=== PATIENT | female | born 1970 | race Caucasian/White ===

== ENCOUNTER → 2017-04-23 | Outpatient (CLI) | payer BC ==
--- NOTE | 2017-04-24 09:20 | MM ---
Reason for exam: screening (asymptomatic). Last mammogram was performed 1 year and 11 months ago. History: Patient is nulliparous. Family history of breast cancer in maternal grandmother at age 75. Took hormonal contraceptives for 1 month beginning at age 39. Physical Findings: A clinical breast exam by your physician is recommended on an annual basis and results should be correlated with mammographic findings. MG Screening Mammo w CAD Bilateral CC and MLO view(s) were taken. Prior study comparison: May 22, 2015, bilateral MG screening mammo w CAD. February 23, 2014, bilateral MG screening mammo w CAD. The breast tissue is heterogeneously dense. This may lower the sensitivity of mammography. No suspicious abnormality. No significant changes when compared with prior studies. ASSESSMENT: Negative, BI-RAD 1 RECOMMENDATION: Routine screening mammogram of both breasts in 1 year.
== END | disposition home or self-care (01) ==
LOC: RADMAMWWP 10:51
PROVIDERS: ATTEND Family Medicine
DX: Z12.31 Encounter for screening mammogram for malignant neoplasm of breast (principal)

== ENCOUNTER 2020-05-04 10:18 | Emergency (ER) | payer BC ==
[2020-05-04 10:33] VITALS: BP 120/83; TEMP 97.8
[2020-05-04] MEDS ORDERED: ALPRAZolam 0.25 MG TAB PO STA (10:46)
--- NOTE | 2020-05-04 11:03 | ED ---
General Adult HPI - General Chief complaint: Psychiatric Symptoms Stated complaint: anxiety/weight loss Time Seen by Provider: 05/04/20 10:34 Source: patient, RN notes reviewed, old records reviewed Mode of arrival: ambulatory Limitations: no limitations - History of Present Illness Initial comments: 49-year-old female patient presents to ED for evaluation of anxiety and depression. Patient was has been ongoing for a couple of months. Patient reports that she has had fleeting thoughts of suicidal ideations. Denies any plan reaction to hurt herself. Patient reports that she has also lost about 20 pounds of this timeframe. Patien states she has not been eating much. Denies any area of pain. Denies any other complaints. Systemic: Pt denies fatigue, fever/chills, rash. Pt denies weakness, night sweats, weight loss. Neuro: Pt denies headache, visual disturbances, syncope or pre-syncope. HEENT: Pt denies ocular discharge or irritation, otalgia, rhinorrhea, pharyngitis or notable lymphadenopathy. Cardiopulmonary: Pt denies chest pain, SOB, heart palpitations, dyspnea on exertion. : Pt denies dysuria, burning w/ urination, frequency/urgency. Denies new onset urinary or bowel incontinence. MSK: Pt denies myalgia, loss of strength or function in extremities. Neuro: Pt denies new onset weakness, paresthesias. - Related Data Home Medications Medication Instructions Recorded Confirmed ALPRAZolam [Xanax] 0.25 mg PO DAILY PRN 05/04/20 05/04/20 Aspirin/Sod Bicarb/Citric Acid 2 tab PO Q12H PRN 05/04/20 05/04/20 [Negar-Renate Original Tab Eff] Venlafaxine HCl [Effexor] 75 mg PO DAILY 05/04/20 05/04/20 traZODone HCL [Desyrel] 100 mg PO HS 05/04/20 05/04/20 Allergies Allergy/AdvReac Type Severity Reaction Status Date / Time No Known Allergies Allergy Verified 05/04/20 13:11 Review of Systems ROS Statement: Those systems with pertinent positive or pertinent negative responses have been documented in the HPI. ROS Other: All systems not noted in ROS Statement are negative. Past Medical History Past Medical History: GERD/Reflux Additional Past Medical History / Comment(s): MENORRHAGIA, UTERINE FIBROIDS, ANEMIA. History of Any Multi-Drug Resistant Organisms: None Reported Past Surgical History: Hysterectomy Additional Past Surgical History / Comment(s): RIGHT ANKLE FX WITH PINS, D & C. Past Anesthesia/Blood Transfusion Reactions: Motion Sickness, Postoperative Nausea & Vomiting (PONV) Past Psychological History: Anxiety, Depression Smoking Status: Never smoker Past Alcohol Use History: Occasional Past Drug Use History: None Reported - Past Family History Mother Family Medical History: Cancer Additional Family Medical History / Comment(s): UTERINE CANCER General Exam - General Exam Comments Initial Comments: Constitutional: NAD, AOX3, Pt has pleasant affect. HEENT: NC/AT, trachea midline, neck supple, no lymphadenopathy. External ears appear normal, without discharge. Mucous membranes moist. Eyes PERRLA, EOM intact. There is no scleral icterus. No pallor noted. Cardiopulmonary: RRR, no murmurs, rubs or gallops, no JVD noted. Lungs CTAB in anterior and posterior alcantar. No peripheral edema. Abdominal exam: Abdomen soft and non-distended. Abdomen non-tender to palpation in all 4 quadrants. Bowel sounds active in LLQ. No hepatosplenomegaly. No ecchymosis Neuro: CN II-XII grossly intact. No nuchal rigidity. MSK: Full active ROM in upper and lower extremities, 5/5 stregnth. Limitations: no limitations Course Vital Signs 05/04/20 05/04/20 10:27 18:39 Temperature 97.8 F Pulse Rate 71 61 Respiratory 18 16 Rate Blood Pressure 120/83 O2 Sat by Pulse 97 99 Oximetry Medical Decision Making - Medical Decision Making 49-year-old female patient presents to ED for evaluation of suicidal ideations, psychiatric complaint. Denies any actions herself. Patient also reports that she has not been eating very much. Lymph investigations are unremarkable. Physical exam negative for acute pathology. Patient evaluated by psychiatric service recommended for discharge. Patient denying any acute suicidal ideations. Patient spoke with her PCP in the ED and will have close outpatient follow up and medication adjustment. PAtient denies any dysuria urine will be cultured. Case discussed with Dr. Larkin. - Lab Data Result diagrams: 05/04/20 11:18 05/04/20 11:18 Lab Results 05/04/20 05/04/20 05/04/20 Range/Units 11:18 11:18 11:18 WBC 5.5 (3.8-10.6) k/uL RBC 4.43 (3.80-5.40) m/uL Hgb 14.1 (11.4-16.0) gm/dL Hct 41.6 (34.0-46.0) % MCV 94.0 (80.0-100.0) fL MCH 31.9 (25.0-35.0) pg MCHC 33.9 (31.0-37.0) g/dL RDW 12.2 (11.5-15.5) % Plt Count 280 (150-450) k/uL Neutrophils % 73 % Lymphocytes % 20 % Monocytes % 5 % Eosinophils % 1 % Basophils % 1 % Neutrophils # 4.0 (1.3-7.7) k/uL Lymphocytes # 1.1 (1.0-4.8) k/uL Monocytes # 0.3 (0-1.0) k/uL Eosinophils # 0.0 (0-0.7) k/uL Basophils # 0.0 (0-0.2) k/uL Sodium 139 (137-145) mmol/L Potassium 3.5 (3.5-5.1) mmol/L Chloride 103 (98-107) mmol/L Carbon Dioxide 29 (22-30) mmol/L Anion Gap 7 mmol/L BUN 11 (7-17) mg/dL Creatinine 0.72 (0.52-1.04) mg/dL Est GFR (CKD-EPI)AfAm >90 (>60 ml/min/1.73 sqM) Est GFR (CKD-EPI)NonAf >90 (>60 ml/min/1.73 sqM) Glucose 95 (74-99) mg/dL Calcium 9.2 (8.4-10.2) mg/dL Total Bilirubin 0.4 (0.2-1.3) mg/dL AST 24 (14-36) U/L ALT 19 (4-34) U/L Alkaline Phosphatase 72 (38-126) U/L Total Protein 7.1 (6.3-8.2) g/dL Albumin 4.3 (3.5-5.0) g/dL Urine Color Yellow Urine Appearance Turbid H (Clear) Urine pH 8.0 (5.0-8.0) Ur Specific Woodward 1.018 (1.001-1.035) Urine Protein Trace H (Negative) Urine Glucose (UA) Negative (Negative) Urine Ketones 1+ H (Negative) Urine Blood Negative (Negative) Urine Nitrite Negative (Negative) Urine Bilirubin Negative (Negative) Urine Urobilinogen <2.0 (<2.0) mg/dL Ur Leukocyte Esterase Moderate H (Negative) Ur Squamous Epith Cells 15 H (0-4) /hpf Amorphous Sediment Many H (None) /hpf Urine Mucus Few H (None) /hpf Urine Opiates Screen Not Detected (NotDetected) Ur Oxycodone Screen Not Detected (NotDetected) Urine Methadone Screen Not Detected (NotDetected) Ur Propoxyphene Screen Not Detected (NotDetected) Ur Barbiturates Screen Not Detected (NotDetected) U Tricyclic Antidepress Not Detected (NotDetected) Ur Phencyclidine Scrn Not Detected (NotDetected) Ur Amphetamines Screen Not Detected (NotDetected) U Methamphetamines Scrn Not Detected (NotDetected) U Benzodiazepines Scrn Detected H (NotDetected) Urine Cocaine Screen Not Detected (NotDetected) U Marijuana (THC) Screen Not Detected (NotDetected) Disposition Clinical Impression: Depression Disposition: HOME SELF-CARE Condition: Stable Instructions (If sedation given, give patient instructions): Depression (ED) Additional Instructions: Follow up with PCP tomorrow. Return to ED with any worsening complaints. Is patient prescribed a controlled substance at d/c from ED?: No Referrals: Yesi Bianchi III, MD [Primary Care Provider] - 1-2 days
[2020-05-04 11:51] LABS: Amorphous Sediment,Urine Many /hpf; Amphetamine Screen,Urine Not Detected (NotDetected); Appearance,Urine Turbid (Clear); Barbiturate Screen,Urine Not Detected (NotDetected); Benzodiazepines Screen,Urine Detected (NotDetected); Bilirubin,Urine Negative (Negative); Blood,Urine Negative (Negative); Cocaine Screen,Urine Not Detected (NotDetected); Color,Urine Yellow; Glucose,Urine (UA) Negative (Negative); Ketones,Urine 1+ (Negative); Leukocyte Esterase,Urine Moderate (Negative); Methadone Screen, Urine Not Detected (NotDetected); Nitrite,Urine Negative (Negative); Opiate Screen,Urine Not Detected (NotDetected); Oxycodone Screen, Urine Not Detected (NotDetected); Phencyclidine Screen,Urine Not Detected (NotDetected); Protein,Urine Trace (Negative); Specific Gravity,Urine 1.018 (1.001-1.035); Tricyclic Antidepressant,Urine Not Detected (NotDetected); Urn Cannabinoid Scrn Not Detected (NotDetected); Urobilinogen,Urine <2.0 mg/dL (<2.0)
[2020-05-04 12:05] LABS: ALT 19 U/L (4-34); AST 24 U/L (14-36); African American GFR (CKD) >90 (>60 ml/min/1.73 sqM); Albumin 4.3 g/dL (3.5-5.0); Alkaline Phosphatase 72 U/L (38-126); Anion Gap 7 mmol/L; Blood Urea Nitrogen 11 mg/dL (7-17); Calcium 9.2 mg/dL (8.4-10.2); Carbon Dioxide 29 mmol/L (22-30); Chloride 103 mmol/L (98-107); Glucose 95 mg/dL (74-99); Non-African American GFR(CKD) >90 (>60 ml/min/1.73 sqM); Potassium 3.5 mmol/L (3.5-5.1); Sodium 139 mmol/L (137-145); Total Bilirubin 0.4 mg/dL (0.2-1.3); Total Protein 7.1 g/dL (6.3-8.2)
[2020-05-04 12:11] LABS: Basophils % (A) 1 %; Eosinophils % (A) 1 %; HCT 41.6 % (34.0-46.0); HGB 14.1 gm/dL (11.4-16.0); Lymphocytes # (A) 1.1 k/uL (1.0-4.8); Lymphocytes % (A) 20 %; MCH 31.9 pg (25.0-35.0); MCHC 33.9 g/dL (31.0-37.0); Mean Platelet Volume 6.7; Monocytes # (A) 0.3 k/uL (0-1.0); Monocytes % (A) 5 %; Neutrophils % (A) 73 %; Platelet Count 280 k/uL (150-450); RBC 4.43 m/uL (3.80-5.40); RDW 12.2 % (11.5-15.5); WBC 5.5 k/uL (3.8-10.6)
[2020-05-04] MEDS ORDERED: LORazepam 1 MG TAB PO STA (14:53)
[2020-05-04 18:41] VITALS: PULSE 61; RESP 16
[2020-05-04 19:08] LABS: Bacteria,Urine Occasional /hpf; Budding Yeast,Urine Many /hpf; Mucus,Urine Moderate /hpf; RBC,Urine 2 /hpf (0-5); Squamous Epithelial Cell,Urine 20 /hpf (0-4); WBC,Urine 23 /hpf (0-5)
== END 2020-05-04 18:40 | disposition home or self-care (01) ==
LOC: EC 10:18
DX: F41.9 Anxiety disorder, unspecified (principal); F32.9 Major depressive disorder, single episode, unspecified; Z79.899 Other long term (current) drug therapy
CPT/HCPCS: 36415; 80053; 80306; 81001; 82075; 85025; 87086; 99284

== ENCOUNTER → 2020-06-07 | Outpatient (CLI) | payer BC | END | disposition home or self-care (01) | LOC: LABWHC1 10:29 | PROVIDERS: ATTEND Emergency Medicine | DX: Z20.828 Contact with and (suspected) exposure to other viral communicable diseases (principal) | CPT/HCPCS: U0003; C9803 ==

== ENCOUNTER 2020-07-03 13:13 | Inpatient (IN) | payer BC ==
--- NOTE | 2020-07-03 14:49 | ED ---
Psych HPI - General Chief Complaint: Psychiatric Symptoms Stated Complaint: EPS eval Time Seen by Provider: 07/03/20 14:01 Source: patient Mode of arrival: ambulatory - History of Present Illness Initial Comments: Patient is a 49-year-old female presenting to the emergency department for psychiatric evaluation. Patient does have history of anxiety and depression. Patient states yesterday she was feeling suicidal and started looking around her house for her husbands guns. Patient continues to feel depressed and suicidal today. Patient states her did move his guns and she does not know whether at this time. Patient denies any homicidal thoughts. She states that her psychologist recently changed her anxiety and depression medications and she does not feel like they are helping. Patient denies any alcohol use, no drug use, she is a nonsmoker. Patient has no further complaints at this time. - Related Data Home Medications Medication Instructions Recorded Confirmed traZODone HCL [Desyrel] 100 mg PO HS 05/04/20 07/03/20 FLUoxetine HCL [PROzac] 20 mg PO DAILY 07/03/20 07/03/20 busPIRone HCl [Buspar] 10 mg PO BID 07/03/20 07/03/20 Allergies Allergy/AdvReac Type Severity Reaction Status Date / Time No Known Allergies Allergy Verified 07/03/20 14:50 Review of Systems ROS Statement: Those systems with pertinent positive or pertinent negative responses have been documented in the HPI. ROS Other: All systems not noted in ROS Statement are negative. Past Medical History Past Medical History: GERD/Reflux Additional Past Medical History / Comment(s): MENORRHAGIA, UTERINE FIBROIDS, ANEMIA. History of Any Multi-Drug Resistant Organisms: None Reported Past Surgical History: Hysterectomy Additional Past Surgical History / Comment(s): RIGHT ANKLE FX WITH PINS, D & C. Past Anesthesia/Blood Transfusion Reactions: Motion Sickness, Postoperative N ausea & Vomiting (PONV) Past Psychological History: Anxiety, Depression Smoking Status: Never smoker Past Alcohol Use History: Occasional Past Drug Use History: None Reported - Past Family History Mother Family Medical History: Cancer Additional Family Medical History / Comment(s): UTERINE CANCER General Exam - General Exam Comments Initial Comments: GENERAL: Patient is well-developed and well-nourished. Patient is nontoxic and in no acute distress. HEAD: Atraumatic, normocephalic. EYES: Pupils equal round and reactive to light, extraocular movements intact, sclera anicteric, conjunctiva are normal. Eyelids were unremarkable. ENT: TMs normal, nares patent, oropharynx clear without exudates. Moist mucous membranes. NECK: Normal range of motion, supple without lymphadenopathy or JVD. LUNGS: Unlabored respirations. Breath sounds clear to auscultation bilaterally and equal. No wheezes rales or rhonchi. HEART: Regular rate and rhythm without murmurs, rubs or gallops. ABDOMEN: Soft, nontender, normoactive bowel sounds. No guarding, no rebound. No masses appreciated. : Deferred MUSCULOSKELETAL: Normal extremities with adequate strength and normal range of motion, no pitting or edema. No clubbing or cyanosis. NEUROLOGICAL: Patient is alert and oriented x 3. Motor and sensory are also intact. Cranial nerves II through XII grossly intact. Symmetrical smile. Normal speech, normal gait. PSYCH: Normal mood, normal affect. SKIN: Warm, Dry, normal turgor, no rashes or lesions noted. Limitations: no limitations Course Vital Signs 07/03/20 13:15 Temperature 98.5 F Pulse Rate 88 Respiratory 18 Rate Blood Pressure 123/79 O2 Sat by Pulse 99 Oximetry Medical Decision Making - Medical Decision Making Patient is a 49-year-old female here for psychiatric evaluation. Patient states she's been feeling depressed over this weekend and yesterday was looking for her husbands guns to commit suicide. She denies any homicidal thoughts. Denies any drug use. Patient was evaluated by EPS and patient will be admitted to the psych unit. Urine drug screen is negative, covert test is negative. Patient did sign herself in. - Lab Data Lab Results 07/03/20 07/03/20 Range/Units 15:14 15:14 Urine Opiates Screen Not Detected (NotDetected) Ur Oxycodone Screen Not Detected (NotDetected) Urine Methadone Screen Not Detected (NotDetected) Ur Propoxyphene Screen Not Detected (NotDetected) Ur Barbiturates Screen Not Detected (NotDetected) U Tricyclic Antidepress Not Detected (NotDetected) Ur Phencyclidine Scrn Not Detected (NotDetected) Ur Amphetamines Screen Not Detected (NotDetected) U Methamphetamines Scrn Not Detected (NotDetected) U Benzodiazepines Scrn Not Detected (NotDetected) Urine Cocaine Screen Not Detected (NotDetected) U Marijuana (THC) Screen Not Detected (NotDetected) Coronavirus (PCR) Not Detected (Not Detectd) Disposition Clinical Impression: Depression with suicidal ideation Disposition: TRANSFER TO PSYCH HOSP/UNIT Condition: Stable Decision Date: 07/03/20 Decision Time: 16:32
[2020-07-03 15:39] LABS: Amphetamine Screen,Urine Not Detected (NotDetected); Barbiturate Screen,Urine Not Detected (NotDetected); Benzodiazepines Screen,Urine Not Detected (NotDetected); Cocaine Screen,Urine Not Detected (NotDetected); Methadone Screen, Urine Not Detected (NotDetected); Opiate Screen,Urine Not Detected (NotDetected); Oxycodone Screen, Urine Not Detected (NotDetected); Phencyclidine Screen,Urine Not Detected (NotDetected); Tricyclic Antidepressant,Urine Not Detected (NotDetected); Urn Cannabinoid Scrn Not Detected (NotDetected)
[2020-07-03] MEDS ORDERED: LORazepam 1 MG TAB PO STA (15:56)
[2020-07-03] MEDS ORDERED: ACETAMINOPHEN TAB 325 MG TAB PO PRN (16:54)
[2020-07-03] MEDS ORDERED: MAGNESIUM HYDROXIDE 2,400 MG/10 ML CUP PO PRN (16:54)
[2020-07-03] MEDS ORDERED: MAG HYDROX/AL HYDROX/SIMETH 30 ML CUP PO PRN (16:54)
[2020-07-03] MEDS ORDERED: LORazepam 1 MG TAB PO PRN (16:54)
[2020-07-03] MEDS ORDERED: LORazepam 2 MG/ML INJ IM PRN (16:56)
[2020-07-03] MEDS: busPIRone HCl 10 MG TAB PO SCH (20:56)
[2020-07-03] MEDS ORDERED: traZODone HCL 100 MG TAB PO SCH (21:00)
[2020-07-04 06:30] VITALS: RESP 16
[2020-07-04 07:24] LABS: Basophils # (A) 0.1 k/uL (0-0.2); Basophils % (A) 1 %; Eosinophils # (A) 0.1 k/uL (0-0.7); Eosinophils % (A) 1 %; HCT 40.5 % (34.0-46.0); HGB 14.1 gm/dL (11.4-16.0); Lymphocytes # (A) 1.4 k/uL (1.0-4.8); Lymphocytes % (A) 36 %; MCH 31.9 pg (25.0-35.0); MCHC 34.8 g/dL (31.0-37.0); MCV 91.9 fL (80.0-100.0); Mean Platelet Volume 6.9; Monocytes # (A) 0.3 k/uL (0-1.0); Monocytes % (A) 8 %; Neutrophils # (A) 2.1 k/uL (1.3-7.7); Neutrophils % (A) 52 %; Platelet Count 254 k/uL (150-450); RBC 4.41 m/uL (3.80-5.40); RDW 11.8 % (11.5-15.5)
[2020-07-04 07:32] LABS: ALT 12 U/L (4-34); AST 19 U/L (14-36); African American GFR (CKD) >90 (>60 ml/min/1.73 sqM); Albumin 3.8 g/dL (3.5-5.0); Alkaline Phosphatase 41 U/L (38-126); Anion Gap 6 mmol/L; Blood Urea Nitrogen 12 mg/dL (7-17); Calcium 9.1 mg/dL (8.4-10.2); Carbon Dioxide 28 mmol/L (22-30); Chloride 105 mmol/L (98-107); Cholesterol 195 mg/dL (<200); Glucose 96 mg/dL (74-99); HDL Cholesterol 55 mg/dL (40-60); LDL Cholesterol,Calculated 126 mg/dL (0-99); Non-African American GFR(CKD) 85 (>60 ml/min/1.73 sqM); Potassium 4.4 mmol/L (3.5-5.1); Sodium 139 mmol/L (137-145); Total Bilirubin 0.5 mg/dL (0.2-1.3); Total Protein 6.5 g/dL (6.3-8.2); Triglycerides 72 mg/dL (<150)
[2020-07-04] MEDS: busPIRone HCl 10 MG TAB PO SCH ×3 (08:25→21:46)
[2020-07-04] MEDS ORDERED: FLUoxetine HCL 20 MG CAP PO SCH (09:00)
--- NOTE | 2020-07-04 11:20 | P.HP ---
Psychiatric H&P - . H&P Date: 07/04/20 History & Physical: Allergies Allergy/AdvReac Type Severity Reaction Status Date / Time No Known Allergies Allergy Verified 07/03/20 17:48 Vital Signs Temp 97.5 F L 07/04/20 06:30 Pulse 79 07/04/20 10:40 Resp 16 07/04/20 06:30 BP 115/69 07/04/20 10:40 Pulse Ox 98 07/04/20 06:30 Intake & Output 07/03/20 07/04/20 07/04/20 18:59 06:59 18:59 Weight 59.534 kg Laboratory Last Values WBC 4.0 k/uL (3.8-10.6) 07/04/20 06:35 RBC 4.41 m/uL (3.80-5.40) 07/04/20 06:35 Hgb 14.1 gm/dL (11.4-16.0) 07/04/20 06:35 Hct 40.5 % (34.0-46.0) 07/04/20 06:35 MCV 91.9 fL (80.0-100.0) 07/04/20 06:35 MCH 31.9 pg (25.0-35.0) 07/04/20 06:35 MCHC 34.8 g/dL (31.0-37.0) 07/04/20 06:35 RDW 11.8 % (11.5-15.5) 07/04/20 06:35 Plt Count 254 k/uL (150-450) 07/04/20 06:35 MPV 6.9 07/04/20 06:35 Neutrophils % 52 % 07/04/20 06:35 Lymphocytes % 36 % 07/04/20 06:35 Monocytes % 8 % 07/04/20 06:35 Eosinophils % 1 % 07/04/20 06:35 Basophils % 1 % 07/04/20 06:35 Neutrophils # 2.1 k/uL (1.3-7.7) 07/04/20 06:35 Lymphocytes # 1.4 k/uL (1.0-4.8) 07/04/20 06:35 Monocytes # 0.3 k/uL (0-1.0) 07/04/20 06:35 Eosinophils # 0.1 k/uL (0-0.7) 07/04/20 06:35 Basophils # 0.1 k/uL (0-0.2) 07/04/20 06:35 Sodium 139 mmol/L (137-145) 07/04/20 06:35 Potassium 4.4 mmol/L (3.5-5.1) 07/04/20 06:35 Chloride 105 mmol/L (98-107) 07/04/20 06:35 Carbon Dioxide 28 mmol/L (22-30) 07/04/20 06:35 Anion Gap 6 mmol/L 07/04/20 06:35 BUN 12 mg/dL (7-17) 07/04/20 06:35 Creatinine 0.81 mg/dL (0.52-1.04) 07/04/20 06:35 Est GFR (CKD-EPI)AfAm >90 (>60 ml/min/1.73 sqM) 07/04/20 06:35 Est GFR (CKD-EPI)NonAf 85 (>60 ml/min/1.73 sqM) 07/04/20 06:35 Glucose 96 mg/dL (74-99) 07/04/20 06:35 Calcium 9.1 mg/dL (8.4-10.2) 07/04/20 06:35 Total Bilirubin 0.5 mg/dL (0.2-1.3) 07/04/20 06:35 AST 19 U/L (14-36) 07/04/20 06:35 ALT 12 U/L (4-34) 07/04/20 06:35 Alkaline Phosphatase 41 U/L (38-126) 07/04/20 06:35 Total Protein 6.5 g/dL (6.3-8.2) 07/04/20 06:35 Albumin 3.8 g/dL (3.5-5.0) 07/04/20 06:35 Triglycerides 72 mg/dL (<150) 07/04/20 06:35 Cholesterol 195 mg/dL (<200) 07/04/20 06:35 LDL Cholesterol, Calc 126 mg/dL (0-99) H 07/04/20 06:35 HDL Cholesterol 55 mg/dL (40-60) 07/04/20 06:35 TSH 3.250 mIU/L (0.465-4.680) 07/04/20 06:35 Urine Opiates Screen Not Detected (NotDetected) 07/03/20 15:14 Ur Oxycodone Screen Not Detected (NotDetected) 07/03/20 15:14 Urine Methadone Screen Not Detected (NotDetected) 07/03/20 15:14 Ur Propoxyphene Screen Not Detected (NotDetected) 07/03/20 15:14 Ur Barbiturates Screen Not Detected (NotDetected) 07/03/20 15:14 U Tricyclic Antidepress Not Detected (NotDetected) 07/03/20 15:14 Ur Phencyclidine Scrn Not Detected (NotDetected) 07/03/20 15:14 Ur Amphetamines Screen Not Detected (NotDetected) 07/03/20 15:14 U Methamphetamines Scrn Not Detected (NotDetected) 07/03/20 15:14 U Benzodiazepines Scrn Not Detected (NotDetected) 07/03/20 15:14 Urine Cocaine Screen Not Detected (NotDetected) 07/03/20 15:14 U Marijuana (THC) Screen Not Detected (NotDetected) 07/03/20 15:14 Coronavirus (PCR) Not Detected (Not Detectd) 07/03/20 15:14 07/04/20 11:12 IDENTIFYING DATA: Patient is a 49-year-old female who currently lives with her in the house is no kids and works for a company doing payroll. HPI: Patient presented to the hospital yesterday for psychiatric evaluation regarding patient's depression and suicidal thoughts. Patient had claimed in the ER that she had been looking for her 's guns in the house. She also admitted that she had a recent medication change for her psychiatric meds and was not feeling that it was helping her. Patient's UDS was negative. Patient signed voluntary and was admitted to the mental health unit. Patient was seen today and agreeable to speak to marketing underwriter. She had a soft tone of voice and appeared to have a constricted affect and appeared to be depressed. She states that she has been dealing with depression for several years now and was previously on Pristiq 40 mg. She stains that her doctor believed that it was not helping her and started her on Prozac 20 mg and was about to do a cross titration and states that patient last dose was on Friday of Pristiq and claims that after that day she was feeling more suicidal and depressed. 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 She states that her has progressive MS and she has to take care of him and also that her mother has dementia and is in a skilled nursing. She claims that on Friday she was feeling more suicidal and looking for the guns to end her life however on Friday she went into work and told her coworkers who told her to come into the ER for evaluation. She states that she did not sleep well last night her appetite has been low and also that she is been dealing with guilt and anxiety. She denied any history of any manic episodes in the past. Patient denies any homicidal ideations intent or plan. She admits to having ongoing thoughts of suicide however no intent or plan. At this time patient denies any auditory or visual hallucinations. Patient denies any flight of ideas racing thoughts and increased in goal directed behavior. Patient admits to using no recreational drugs cigarettes or alcohol. PAST PSYCHIATRIC HISTORY: Patient states that she has a history of depression. She claims that she was previously on Pristiq, Prozac, BuSpar and trazodone. Patient denies any previous psychiatric hospitalizations. She states that she was following up at [facility] and also with her primary care physician. Patient denies any history of suicide attempts in the past. PMH:denies ALLERGIES: as per EMR CHEMICAL DEPENDENCY HISTORY: as per HPI FAMILY PSYCHIATRIC/SUBSTANCE USE HISTORY: She states that her mother suffered from bipolar disorder now has dementia. SOCIAL HISTORY: Patient was born and raised in [place] and claims that currently she lives with her in a house has no kids. She states that she completed high school and currently works at a job doing payroll. She denies any legal history or penitentiary. MENTAL STATUS EXAM: General Appearance: Patient appears to be thin, older than stated age is alert, constricted affect and appears to be depressed however is attempting to cooperate. Patient appears to have poor hygiene and grooming. Behavior: Patient is seated without any agitated behavior. Constricted Speech: Patient's speech is fluent and nonpressured. Mood/Affect: Patient reports their mood is depressed and anxious, affect is congruent and constricted. Suicidality/Homicidality: Patient denies having any homicidal ideation intent or plan. She admits to suicidal ideations however nontender plan. Perceptions: Patient denies any visual hallucinations and denies any auditory hallucinations Though content/process: There is no evidence of any delusional thought content and thought process is linear and goal-directed. Focused on her symptoms and her medications. Depressive content. Memory and concentration: AOX3, grossly intact for the purposes of this session. Can spell "WORLD" backwards Judgment and insight: Fair STRENGTHS/WEAKNESSES: strength is that patient is resilient. Weakness is that patient has a chronic history of depression and several environmental stressors. INTELLECT: average IMPRESSIONS: Major depressive disorder, recurrent, severe without psychotic features Anxiety disorder unspecified PLAN: -Patient is admitted under voluntary status to MHU for stabilization of psychiatric symptoms and safety. Patient has signed adult voluntary form and medication consent and is placed in patient's chart. -Medications : Will start patient on Cymbalta 30 mg daily for mood/anxiety. Will also increase patient's trazodone to 150 mg daily at bedtime for insomnia/mood. Will increase BuSpar to 10 mg 3 times a day for anxiety. -Ativan PRN for agitation/aggression -Patient was informed of the risks, benefits and side effects of the medication and patient verbally consented to taking the medications. Patient signed med con sent form and was placed in chart. -Internal Medicine consult to perform medical evaluation and physical. -NRT -not needed as patient does not smoke -SW on board for discharge planning. Encourage patient to participate in groups to work on coping skills.
[2020-07-04] MEDS: DULoxetine HCL 30 MG CAPSULE.DR PO SCH (12:08)
[2020-07-04 17:37] LABS: Hemoglobin A1C 5.2 % (4.0-6.0)
[2020-07-04] MEDS: traZODone HCL 50 MG TAB PO SCH (21:47)
--- NOTE | 2020-07-04 22:46 | P.CONS ---
History of Present Illness - History of Present Illness This is a pleasant 49 years old female with past medical history of GERD, ut erine fibroids and anemia. She presents with signs and symptoms of depression without psychosis to the mental health unit. Medical consult has been requested for routine medical management. Patient is a pleasant with no physical complaints, she denies chest pain or dyspnea, no abdominal pain, no change in urine or bowel habits. No fever She denies leg pain or swelling. She denies smoking, alcohol or illicit drugs Labs including CBC, BMP, liver enzymes, TSH are unremarkable and all within nor mal limits. Urine drug screen is negative. Coronal varus not detected Review of Systems CONSTITUTIONAL: No fever, no malaise, no fatigue. HEENT: No recent visual problems or hearing problems. Denied any sore throat. CARDIOVASCULAR: No orthopnea, PND, no palpitations, no syncope. PULMONARY: No shortness of breath, no cough, no hemoptysis. GASTROINTESTINAL: No diarrhea, no nausea, no vomiting, no abdominal pain. Normoactive bowel sounds. NEUROLOGICAL: No headaches, no weakness, no numbness. HEMATOLOGICAL: Denies any bleeding or petechiae. GENITOURINARY: Denies any burning micturition, frequency, or urgency. MUSCULOSKELETAL/RHEUMATOLOGICAL: Denies any joint pain, swelling, or any muscle pain. ENDOCRINE: Denies any polyuria or polydipsia. Past Medical History Past Medical History: GERD/Reflux Additional Past Medical History / Comment(s): MENORRHAGIA, UTERINE FIBROIDS, ANEMIA. History of Any Multi-Drug Resistant Organisms: None Reported Past Surgical History: Hysterectomy Additional Past Surgical History / Comment(s): RIGHT ANKLE FX WITH PINS, D & C. Past Anesthesia/Blood Transfusion Reactions: Motion Sickness, Postoperative Nausea & Vomiting (PONV) Past Psychological History: Anxiety, Depression Smoking Status: Never smoker Past Alcohol Use History: Occasional Past Drug Use History: None Reported - Past Family History Mother Family Medical History: Cancer Additional Family Medical History / Comment(s): UTERINE CANCER Medications and Allergies Home Medications Medication Instructions Recorded Confirmed Type traZODone HCL [Desyrel] 100 mg PO HS 05/04/20 07/03/20 History FLUoxetine HCL [PROzac] 20 mg PO DAILY 07/03/20 07/03/20 History busPIRone HCl [Buspar] 10 mg PO BID 07/03/20 07/03/20 History Allergies Allergy/AdvReac Type Severity Reaction Status Date / Time No Known Allergies Allergy Verified 07/03/20 17:48 Physical Exam Vitals: Vital Signs Temp Pulse Resp BP Pulse Ox 07/04/20 10:40 79 115/69 07/04/20 06:30 97.5 F L 68 16 97/60 98 07/03/20 17:39 97.6 F 70 20 127/77 Intake and Output 07/03/20 07/04/20 07/04/20 22:59 06:59 14:59 Other: Weight 59.534 kg GENERAL: The patient is alert and oriented x3, not in any acute distress. Well developed, well nourished. HEENT: Pupils are round and equally reacting to light. EOMI. No scleral icterus. No conjunctival pallor. Normocephalic, atraumatic. No pharyngeal erythema. No thyromegaly. CARDIOVASCULAR: S1 and S2 present. No murmurs, rubs, or gallops. PULMONARY: Chest is clear to auscultation, no wheezing or crackles. ABDOMEN: Soft, nontender, nondistended, normoactive bowel sounds. No palpable organomegaly. MUSCULOSKELETAL: No joint swelling or deformity. EXTREMITIES: No cyanosis, clubbing, or pedal edema. NEUROLOGICAL: Gross neurological examination did not reveal any focal deficits. SKIN: No rashes. No petechiae Results CBC & Chem 7: 07/04/20 06:35 07/04/20 06:35 Labs: Abnormal Lab Results - Last 24 Hours (Table) 07/04/20 Range/Units 06:35 LDL Cholesterol, Calc 126 H (0-99) mg/dL Assessment and Plan Assessment: Depression and other psychiatric medical illnesses, management as per psych team History of GERD, continue same medication History of uterine fibroids, follow-up as an outpatient, currently asymptomatic We recommend patient follow up with her PCP within one week after discharge and patient was instructed with the same Thank you for consulting us, we will see the patient on as-needed basis. Please free to contact us for any further question or clarification
[2020-07-05 07:08] VITALS: BP 99/57; PULSE 88; TEMP 98
[2020-07-05] MEDS: busPIRone HCl 10 MG TAB PO SCH ×2 (09:10→20:55)
[2020-07-05] MEDS: DULoxetine HCL 30 MG CAPSULE.DR PO SCH ×2 (09:10→20:55)
--- NOTE | 2020-07-05 10:04 | P.PN ---
Progress Note - Text Progress Note Date: 07/05/20 Interval History: Patient was seen sitting in a group today and was directable and agreeable to speak with chief writer in the office. Patient continues to have a constricted and depressed affect however states that she is feeling "a little bit better" and claims that the BuSpar has been helping with her anxiety. She states that she would rather have the dosing twice a day of BuSpar. Patient claims that she was able to sleep fairly throughout the night and denied any overnight complaints. She states that she was missing her and she spoke to him over the phone yesterday. She claims that she has been trying to go to groups however was not able to elaborate much on what she is learning on the groups. She states that her appetite is improving mildly so far. At this time patient denies any suicidal or homical ideations, intent or plan. Patient denies any auditory, visual hallucinations and denies any paranoia or delusions. Patient denies any side effects from the medications and has been compliant with meds. Mental Status Exam: General Appearance: Patient appears to be thin, older than stated age is alert, constricted affect and appears to be depressed. Patient appears to have improving hygiene and grooming. Behavior: Patient is seated without any agitated behavior. Constricted Speech: Patient's speech is fluent and nonpressured. Mood/Affect: Patient reports their mood is depressed, improving mildly, affect is congruent and constricted. Suicidality/Homicidality: Patient denies having any homicidal ideation intent or plan. She denies any suicidal ideations intent or plan. Perceptions: Patient denies any visual hallucinations and denies any auditory hallucinations Though content/process: There is no evidence of any delusional thought content and thought process goal-directed. [place]. Poverty of content judgment and insight: Fair Assessment Major depressive disorder, recurrent, severe without psychotic features Anxiety disorder unspecified Plan: -Patient continues to meet criteria for inpatient psychiatric admission for symptom stabilization and safety. Patient has signed adult voluntary form and medication consent and was placed in patient's chart. -Medications: Increase Cymbalta to 30 mg twice a day for mood/anxiety. Continue trazodone 150 mg daily at bedtime for insomnia/mood. Increased BuSpar to 20 mg twice a day for anxiety. -When necessary Ativan and Haldol for agitation/aggression. -NRT - not needed as patient does not smoke. -SW on board for discharge planning. Encouraged the patient to participate in milieu. likely discharge back home in 1-2 days if patient is improving.
[2020-07-05] MEDS: traZODone HCL 50 MG TAB PO SCH (20:55)
[2020-07-06] MEDS: DULoxetine HCL 30 MG CAPSULE.DR PO SCH (08:28)
[2020-07-06] MEDS: busPIRone HCl 10 MG TAB PO SCH (08:28)
[2020-07-07] MEDS ORDERED: DULoxetine HCL 60 MG CAPSULE.DR PO SCH (09:00)
--- NOTE | 2020-07-07 11:24 | DS ---
DISCHARGE SUMMARY DATE OF SERVICE: 07/06/2020 ADMISSION AND DISCHARGE DIAGNOSIS: 1. Major depression, recurrent, severe, without psychotic features. 2. Anxiety disorder. 3. GERD. HISTORY OF PRESENTING ILLNESS: The patient is a 49-year-old female, she was admitted due to depression with suicidal thinking. She presented to the emergency room stating that she was at home looking for her 's guns in order to commit suicide. She reported depression over several years. She had been on Pristiq 40 mg a day. Her antidepressant was recently changed to Prozac 20 mg a day. The patient noted with the medication change she started having more depression issues and was feeling suicidal. She has had a number of stress issues including feeling overwhelmed at work and dealing with her 's progressive MS. She has not had a previous psychiatric hospitalization. There were no substance use issues. The patient was admitted for further evaluation. PAST MEDICAL HISTORY AND PHYSICAL EXAM: As per Dr. Mayes. MENTAL STATUS EXAM: The patient had a constricted affect and was depressed. Her thoughts were clear. She admitted to suicide thinking without a plan. There was no indication of thought disorder. She was oriented and alert. COURSE OF HOSPITALIZATION: Patient was admitted for comprehensive medical psychiatric and psychosocial evaluation. We engaged the patient in individual and group therapeutic activities. On admission, the patient was started on Cymbalta, which was titrated to 30 mg twice a day. During the hospitalization, the patient attended groups. She generally showed a constricted affect. She was reporting that her mood was somewhat better. She was started on Buspar 20 mg twice a day to help with anxiety. She was also given trazodone 150 mg at bedtime for insomnia. She was cooperative with all aspects of care during treatment. We coordinated with the patient and from the 's standpoint. He felt that she was showing improvement and that she was stable to be discharged. To the patient's part, she was able to cooperate with discharge planning. It is noteworthy that she had been seen in the past through professional counseling, she was willing to return to professional counseling. However, they declined to provide followup at this time because she had apparently canceled three appointments in the fall prior to her coming into the hospital. As a result, she was referred to alternative services. Condition at discharge, patient was stable. Her mood was improved. She was denying any thoughts of harm to self or others. She tolerated her psychotropic medications. RECOMMENDATIONS AND FOLLOWUP: Patient was discharged to home. Discharge medications included Cymbalta 60 mg a day, Buspar 20 mg twice a day and trazodone 150 mg at bedtime. She was referred to [facility] with a followup appointment on 07/24/2020 at 5 pm. She is was also referred back to her primary care physician Dr. Ramirez in [place]. MMODL / IJN: [id number] /
== END 2020-07-06 14:00 | disposition home or self-care (01) | DRG 885 ==
LOC: EC 13:13 → 3MHU 16:38
PROVIDERS: ADMIT Psychiatry & Neurology Psychiatry; ATTEND Psychiatry & Neurology Psychiatry
DX: F33.2 Major depressive disorder, recurrent severe without psychotic features (principal); R45.851 Suicidal ideations; F41.9 Anxiety disorder, unspecified; Z79.899 Other long term (current) drug therapy; Z80.49 Family history of malignant neoplasm of other genital organs; Z81.8 Family history of other mental and behavioral disorders; Z90.710 Acquired absence of both cervix and uterus; Z82.0 Family history of epilepsy and other diseases of the nervous system; Z20.828 Contact with and (suspected) exposure to other viral communicable diseases; K21.9 Gastro-esophageal reflux disease without esophagitis
CPT/HCPCS: 80053; 80061; 80306; 82075; 83036; 84443; 85025; 87635; 99285